=== PATIENT | female | born 1950 | race Hispanic/Latino ===

== ENCOUNTER → 2020-01-29 | Outpatient (CLI) | payer MEDICARE ==
[~2020-01-29] MED LIST: REGADENOSON 0.4 MG/5 ML SYR IV ONE
--- NOTE | 2020-01-31 16:40 | Myoview Stress Test ---
DATE OF STUDY: 01/29/2020 10:59:00 Stress Test - Treadmill ONLY PROCEDURE TITLE: Rest/stress single isotope SPECT imaging with pharmacologic stress and gated SPECT imaging. INDICATION: Chest pain. PROCEDURE IN DETAIL: Pharmacologic stress testing was performed with regadenoson per protocol. The heart rate was 63 beats per minute at rest, increased to 113 beats per minute during the regadenoson infusion. The resting blood pressure was 162/83 mmHg and decreased to 132/69 mmHg which is a normal response. The resting electrocardiogram demonstrated normal sinus rhythm with nonspecific ST and T-wave abnormalities. Frequent PVCs were observed during the recovery. Myocardial perfusion imaging was performed at rest following the injection of 11 mCi of tetrofosmin. At peak pharmacologic effect, the patient was injected with 33 mCi of tetrofosmin. Gated post-stress tomographic imaging was performed. FINDINGS: The overall quality of study is fair. Left ventricular cavity is noted be normal size on the rest and stress studies. SPECT images demonstrate a small mild perfusion defect in the apex at rest that persists on stress. Gated SPECT imaging reveals normal myocardial thickening and wall motion. The left ventricular ejection fraction calculated to be 66%. IMPRESSION: Nondiagnostic ECG Lexiscan stress test due to presence of resting ECG abnormalities. Myocardial perfusion imaging is abnormal. There is a small nontransmural scar in the apex. The overall left ventricular systolic function was normal without regional wall motion abnormalities. Dee Dee Bettencourt MD ABS/MODL /[id number]
== END ==
LOC: NM 10:38
PROVIDERS: ATTEND Internal Medicine Cardiovascular Disease
DX: R07.9 Chest pain, unspecified (principal)
CPT/HCPCS: 78452; 93017; A9502; J2785

== ENCOUNTER → 2020-02-14 | Day surgery (SDC) | payer MEDICARE, OTHER ==
[2020-02-11 12:15] LABS: BASOPHILS % 0.6 % (0.0-1.0); EOSINOPHILS # (AUTO) 0.2 (0.0-0.4); HEMATOCRIT 36.7 % (34.2-44.1); HEMOGLOBIN 12.3 g/dL (12.0-16.0); LYMPHOCYTES # (AUTO) 1.7 (1.0-3.2); LYMPHOCYTES % 33.1 % (18.0-39.1); MEAN CORPUSCULAR HEMOGLOBIN 29.1 pg (28-32); MEAN CORPUSCULAR HGB CONC 33.5 g/dL (31-35); MONOCYTES # (AUTO) 0.6 (0.2-0.8); MONOCYTES % 12.4 % (4.4-11.3); NEUTROPHILS # (AUTO) 2.5 (2.1-6.9); NEUTROPHILS % 50.7 % (38.7-80.0); PLATELET COUNT 166 x10e3/uL (140-360); RED BLOOD COUNT 4.22 x10e6/uL (3.6-5.1); RED CELL DISTRIBUTION WIDTH 13.5 % (11.7-14.4)
[2020-02-11 12:27] LABS: INR 0.96; PROTHROMBIN TIME 13.3 seconds (11.9-14.5)
[2020-02-11 12:37] LABS: ALANINE AMINOTRANSFERASE 13 IU/L (0-55); ALBUMIN 3.9 g/dL (3.5-5.0); ALBUMIN/GLOBULIN RATIO 1.1 (0.8-2.0); ALKALINE PHOSPHATASE 61 IU/L (40-150); ANION GAP 12.6 mmol/L (8-16); BLOOD UREA NITROGEN 18 mg/dL (7-26); BUN/CREATININE RATIO 24 (6-25); CALCIUM 11.1 mg/dL (8.4-10.2); CARBON DIOXIDE 28 mmol/L (22-29); CHLORIDE 103 mmol/L (98-107); CREATININE, SERUM 0.75 mg/dL (0.57-1.11); EST GLOMERULAR FILTRATION RATE > 60 ML/MIN (60-); GLUCOSE 87 mg/dL (74-118); POTASSIUM 4.6 mmol/L (3.5-5.1); SODIUM 139 mmol/L (136-145)
[~2020-02-14] VITALS: Ht 165.1 cm; Wt 49.4 kg
[2020-02-14] VITALS (10 sets, daily range): BP systolic 127–150; BP diastolic 57–88
[~2020-02-14] MED LIST changes: +ALENDRONATE SOD70 MG PO; +ASPIRIN325 MG PO; +ATORVASTATIN CA20 MG PO; +BACLOFEN10 MG PO; +CALCIUM PO; +CARVEDILOL3.125 MG PO; +FENTANYL CITRATE/PF 100MCG/2 ML INJ ONE; +HEPARIN SOD (PORCINE) 1000 UNIT/ML 30ML ONE; +HEPARIN SOD/SOD CHLORIDE 2,000 ML ONE; +HYDROCHLOROTH12.5 MG PO; +IOPAMIDOL 370 MG/ML 200 ML INFUS..BTL INJ ONE; +LIDOCAINE HCL 2% LOCAL 20 ML VIAL ONE; +LOSARTAN POTAS100 MG PO; +MIDAZOLAM HCL 2 MG/2 ML VIAL ONE; +NITROGLYCERIN/D5W 200 MCG/ML 250 ML ONE; +POTASSIUM CHLO10 ME1 PO; -REGADENOSON 0.4 MG/5 ML SYR IV ONE; +SODIUM CHLORIDE 0.9% 1000ML 1,000 ML ONE; +VERAPAMIL HCL 2.5 MG/ML 2 ML VIAL ONE
--- NOTE | 2020-02-14 08:49 | NUR ---
0849am in prepped for procedure. Alert oriented and appropriate, PERRLA, respirations even and unlabored to room air. Pulses x4 extremities equal and faint. Pedal pulses PT/DP weak to nonexistent and marked. Cap fill brisk < 3 sec. bilateral feet semi cool and pale. Left groin site with no gross issues pain,pallor,pressure or dysrhythmia. Skin warm and dry integrity appears intact in general. IV left hand site with saline lock started and presents healthy w/o s/s of infiltration or complaint. Abdomen soft and supple. pt offered toileting, denies need to urinate or defecate. Personal affects with patient. Family at bedside. Pt and family verbalizes understanding of POC. Bed low and locked, side rails up x2 and call light at side. -mara Addendum: 02/14/20 at 1340 by Cary Lake RN 0849 am Prepped for procedure ,error procedure completed all other documentation correct. mara
--- NOTE | 2020-02-14 09:33 | Operative Report ---
DATE OF PROCEDURE: SURGEON: Dixon Dorantes DO REPORT TITLE: Cardiology Procedure note BODY AFTER REPORT TITLE: PREPROCEDURE DIAGNOSIS: Abnormal stress test. POSTPROCEDURE DIAGNOSIS: No obstructive coronary artery disease. ESTIMATED BLOOD LOSS: Less than 10 mL. SPECIMENS REMOVED: None. PROCEDURE IN DETAIL: After informed consent was obtained, the patient was brought to the cardiac catheterization laboratory in a fasting and nonsedated state. Bilateral groins were prepped and draped in usual sterile fashion. A 2% lidocaine was infiltrated over the right anterior groin for local anesthesia. The patient received fentanyl and midazolam administered by the collaborating supervising physician nurse and her neurologic and physiologic status was monitored by myself and collaborating supervising physician staff for 26 minutes. A 2% lidocaine was infiltrated over the right anterior groin for local anesthesia. Using a micropuncture needle, the right common femoral artery was accessed via modified Seldinger technique and a 5-Tajik sheath was placed. Next, diagnostic coronary angiography was performed using a JL4 and 3DRC catheters. Left heart catheterization was then performed using the same catheter. The patient tolerated the procedure well with no immediate complications, transferred back to the room in stable condition. PROCEDURAL FINDINGS: 1. Left main is patent. 2. Left anterior descending coronary artery is patent and small that approaches to LV apex. 3. Left circumflex coronary artery is a dominant artery that provides a small posterior descending coronary artery in addition to three other small obtuse marginal vessels without obstructive disease. 4. Right coronary artery is small and nondominant without disease. 5. Left ventricular end-diastolic pressure was 15 mmHg with no aortic valve gradient present upon pullback. IMPRESSION: No coronary artery disease. RECOMMENDATIONS: Medical management. Dixon Dorantes DO BM/MODL /[id number]
--- NOTE | 2020-02-14 12:00 | NUR ---
1200noon [facility] OPER[employer] RECOVERY DISCHARGE NURSING NOTE 1200n pt c/o nausea resolved with crackers.Md aware Pt asymptomatic otherwise.NSR VS stable. Pt meets DC criteria. Rt groin assessed for s/s of complication and presence of hematoma. Skin warm, dry, no discolor, and pulses present. IV removed from left hand. Distal tip appears intact. VS WNL. Pt denies pain, sob, or need at this time. [facility] (daughter ). Review of discharge paperwork and follow up instructions. verbalized understanding. Pt to wheelchair and transported to front of hospital. Transferred to private vehicle under own strength w/o incident with DC paperwork in hand. ds/rn
--- NOTE | 2020-02-15 13:00 | NUR ---
1300Received pt in rm 299 Prepped for [facility] Dr Nicole. Consent competed. Pt has c/o Cp 01/05 states was like in DR Office. achy was relieved with nitro. Reported c/o vs to [facility] floor staff and Head Cleaning Porter charge Andi MCNALLY. Remains NSR per tele room.Pt remains NPO has left ac iv intact. NO further c/o.Left pt with side rails up and call light at bedside.Bed in low position. ds/rn
== END | disposition home or self-care (01) ==
LOC: CATH LAB 06:25
PROVIDERS: ATTEND Internal Medicine Cardiovascular Disease
DX: I25.10 Atherosclerotic heart disease of native coronary artery without angina pectoris (principal); R94.39 Abnormal result of other cardiovascular function study; I10 Essential (primary) hypertension; E78.5 Hyperlipidemia, unspecified; Z01.812 Encounter for preprocedural laboratory examination; Z11.59 Encounter for screening for other viral diseases; Z79.82 Long term (current) use of aspirin
CPT/HCPCS: 36415; 80053; 85025; 85610; 87635; 93458; C1769; C1887; J1644; J2001; J2250; J3010; J7030; Q9967

== ENCOUNTER → 2020-11-20 | Outpatient (CLI) | payer MEDICARE ==
[~2020-11-20] MED LIST changes: -FENTANYL CITRATE/PF 100MCG/2 ML INJ ONE; -HEPARIN SOD (PORCINE) 1000 UNIT/ML 30ML ONE; -HEPARIN SOD/SOD CHLORIDE 2,000 ML ONE; -LIDOCAINE HCL 2% LOCAL 20 ML VIAL ONE; -MIDAZOLAM HCL 2 MG/2 ML VIAL ONE; -NITROGLYCERIN/D5W 200 MCG/ML 250 ML ONE; +SODIUM CHLORIDE 0.9% 100 ML ONE; -SODIUM CHLORIDE 0.9% 1000ML 1,000 ML ONE; -VERAPAMIL HCL 2.5 MG/ML 2 ML VIAL ONE
[2020-11-20 12:32] LABS: BLOOD UREA NITROGEN 10 mg/dL (7-26); BUN/CREATININE RATIO 13 (6-25); CREATININE, SERUM 0.75 mg/dL (0.57-1.11); EST GLOMERULAR FILTRATION RATE > 60 ML/MIN (60-)
== END ==
LOC: CT 11:38
PROVIDERS: ATTEND Internal Medicine Cardiovascular Disease
DX: I71.9 Aortic aneurysm of unspecified site, without rupture (principal)
CPT/HCPCS: 36415; 71275; 82565; 84520; J7050; Q9967

== ENCOUNTER 2022-03-25 19:27 | Emergency (ER) | payer OTHER ==
[~2022-03-25] VITALS: Ht 165.1 cm; Wt 49.4 kg
[~2022-03-25 19:27] MED LIST changes: -IOPAMIDOL 370 MG/ML 200 ML INFUS..BTL INJ ONE; -SODIUM CHLORIDE 0.9% 100 ML ONE
[2022-03-25] MEDS ORDERED: ONDANSETRON HCL INJ 2MG/ML 2ML 2 MG/ML VIAL IV STA (19:45)
[2022-03-25] MEDS ORDERED: SODIUM CHLORIDE 0.9% 1000ML 1,000 ML IV ONE (19:45)
[2022-03-25 20:01] LABS: EOSINOPHILS % 0.5 % (0.0-6.0); HEMATOCRIT 36.6 % (34.2-44.1); HEMOGLOBIN 12.8 g/dL (12.0-16.0); LYMPHOCYTES # (AUTO) 1.3 (1.0-3.2); LYMPHOCYTES % 33.6 % (18.0-39.1); MEAN CORPUSCULAR HEMOGLOBIN 30.8 pg (28-32); MEAN CORPUSCULAR VOLUME 88.2 fL (81-99); MONOCYTES # (AUTO) 0.5 (0.2-0.8); MONOCYTES % 12.6 % (4.4-11.3); NEUTROPHILS % 52.3 % (38.7-80.0); PLATELET COUNT 139 x10e3/uL (140-360); RED BLOOD COUNT 4.15 x10e6/uL (3.6-5.1); RED CELL DISTRIBUTION WIDTH 12.8 % (11.7-14.4)
[2022-03-25 20:20] LABS: ANION GAP 13.9 mmol/L (8-16); CALCIUM 10.2 mg/dL (8.4-10.2); CREATININE, SERUM 1.06 mg/dL (0.57-1.11)
[2022-03-25 20:29] LABS: POTASSIUM 2.9 mmol/L (3.5-5.1)
[2022-03-25] MEDS ORDERED: POTASSIUM CHLORIDE 20 MEQ TAB CR PO STA (20:29)
[2022-03-25 20:56] VITALS: BP 120/69
== END 2022-03-25 21:07 | disposition home or self-care (01) ==
LOC: ER 19:35
DX: R53.83 Other fatigue (principal); U07.1 COVID-19; E87.6 Hypokalemia; I10 Essential (primary) hypertension; E78.5 Hyperlipidemia, unspecified
CPT/HCPCS: 36415; 80048; 85025; 99284; J2405; J7030; U0002